=== PATIENT | male | born 1990 | race Caucasian/White ===

== ENCOUNTER 2017-04-06 11:10 | Emergency (ER) | payer SELFPAY ==
[~2017-04-06] VITALS: Ht 180.3 cm; Wt 84.0 kg
[2017-04-06 12:12] VITALS: BP 138/79
== END 2017-04-06 16:35 | disposition left against medical advice (07) ==
LOC: ER 12:15
DX: I10 Essential (primary) hypertension (principal); Z53.21 Procedure and treatment not carried out due to patient leaving prior to being seen by health care provider